=== PATIENT | female | born 1980 | race Caucasian/White ===

== ENCOUNTER 2020-09-22 07:12 | Day surgery (SDC) | payer MEDICAID, SELFPAY ==
[~2020-09-22] VITALS: Ht 172.7 cm; Wt 53.1 kg
[2020-09-22 08:08] LABS: HCG,QUAL RESULT NEGATIVE (NEGATIVE)
[2020-09-22] MEDS ORDERED: MIDAZOLAM HCL 5 MG/5 ML VIAL ONE (08:17)
[2020-09-22] MEDS ORDERED: SIMETHICONE 40 MG/0.6 ML ML ONE (08:17)
[2020-09-22] MEDS ORDERED: MEPERIDINE 100 MG INJ. 100 MG/ML VIAL ONE (08:17)
[2020-09-22 14:19] VITALS: BP_SYST 101
== END 2020-09-22 12:30 | disposition home or self-care (01) ==
LOC: SDS 07:12
PROVIDERS: ATTEND Internal Medicine Gastroenterology
DX: R19.4 Change in bowel habit (principal); K63.5 Polyp of colon; K21.9 Gastro-esophageal reflux disease without esophagitis; Z79.899 Other long term (current) drug therapy
CPT/HCPCS: 36415; 45380; 84703; 87426; 88305; 99152; G0378; J2175; J2250